=== PATIENT | female | born 1955 | race American Indian/Alaskan Native ===

== ENCOUNTER 2016-11-23 10:00 | Outpatient (CLI) | payer MEDICARE ==
--- NOTE | 2016-11-23 13:11 | Mammography Report ---
LEFT DIGITAL DIAGNOSTIC MAMMOGRAM with CAD: 11/23/16 10:00:00 CLINICAL: Six month followup of an asymmetry. COMPARISON:06/01/16 FINDINGS: Routine views plus spot magnification views were performed.A 1.2 cm oval slightly irregular low density upper outer focal asymmetry is stable compared to the previous exam. A previous ultrasound was negative. IMPRESSION: A stable probably benign focal asymmetry. BI-RADS CATEGORY: 3 - - Probably Benign RECOMMENDATION: Six-month followup. She will be due for routine screening of the right breast in six months. ACR BI-RADS MAMMOGRAPHIC CODES: 0 = Needs additional imaging evaluation; 1 = Negative; 2 = Benign; 3 = Probably benign; 4 = Suspicious; 5 = Malignant; 6 = Known biopsy-proven malignancy COMMENT: 1. Dense breast tissue, i.e., adenosis, fibrocystic changes, etc., may obscure an underlying neoplasm. 2. Approximately 10% of cancers are not detected with mammography. 3. A negative mammography report should not delay biopsy if a clinically suspicious mass is present. COMMENT: Patient follow-up letters are generated by our [employer] application.
== END 2016-11-23 10:01 | disposition home or self-care (01) ==
LOC: SPVWC 10:00
DX: R92.8 Other abnormal and inconclusive findings on diagnostic imaging of breast (principal)
CPT/HCPCS: G0206-LT

== ENCOUNTER 2017-04-16 08:19 | Outpatient (CLI) | payer MEDICARE ==
--- NOTE | 2017-04-17 13:18 | Vascular Lab Report ---
LOWER EXTREMITY VENOUS DUPLEX: REASON FOR EXAM: Edema of the lower extremities. COMMENTS ON THE RIGHT: All veins visualized are freely compressible without evidence of internal echogenicity. Flow is spontaneous and phasic throughout. COMMENTS ON THE LEFT: All veins visualized are freely compressible without evidence of internal echogenicity. Flow is spontaneous and phasic throughout. IMPRESSION: No evidence of acute or chronic deep venous thrombosis in either lower extremity.
== END 2017-04-16 08:20 | disposition home or self-care (01) ==
LOC: VAS 08:19
DX: R60.0 Localized edema (principal)
CPT/HCPCS: 93970

== ENCOUNTER 2017-05-25 12:57 | Outpatient (CLI) | payer MEDICARE ==
--- NOTE | 2017-05-25 13:48 | Mammography Report ---
BILATERAL DIGITAL DIAGNOSTIC MAMMOGRAM with CAD: 05/25/17 12:57:00 CLINICAL: Followup left outer asymmetry. COMPARISON:11/23/16, 06/01/16 and 03/13/16 FINDINGS: The breasts are predominant fatty.The previously described 1 cm ovoid asymmetry in the left breast with an ill-defined margin is stable. No architectural distortion or suspicious calcifications. The right breast is negative. IMPRESSION: Stable probably benign left asymmetry. Negative right breast. BI-RADS CATEGORY: 3 - - Probably Benign RECOMMENDATION: Six month followup left mammogram. ACR BI-RADS MAMMOGRAPHIC CODES: 0 = Needs additional imaging evaluation; 1 = Negative; 2 = Benign; 3 = Probably benign; 4 = Suspicious; 5 = Malignant; 6 = Known biopsy-proven malignancy COMMENT: 1. Dense breast tissue, i.e., adenosis, fibrocystic changes, etc., may obscure an underlying neoplasm. 2. Approximately 10% of cancers are not detected with mammography. 3. A negative mammography report should not delay biopsy if a clinically suspicious mass is present. COMMENT: Patient follow-up letters are generated by our [employer] application.
== END 2017-05-25 12:58 | disposition home or self-care (01) ==
LOC: SPVWC 12:57
DX: N64.89 Other specified disorders of breast (principal); I10 Essential (primary) hypertension; E78.00 Pure hypercholesterolemia, unspecified; J44.9 Chronic obstructive pulmonary disease, unspecified; J18.9 Pneumonia, unspecified organism; F32.9 Major depressive disorder, single episode, unspecified; Z87.891 Personal history of nicotine dependence
CPT/HCPCS: 77066; G0204

== ENCOUNTER 2017-11-20 12:53 | Outpatient (CLI) | payer MEDICARE ==
--- NOTE | 2017-11-20 14:30 | Mammography Report ---
LEFT DIGITAL DIAGNOSTIC MAMMOGRAM with CAD and LEFT BREAST ULTRASOUND: 11/20/17 12:53:00 CLINICAL: Follow-up of a probably benign mammographic asymmetry with no ultrasound correlate. COMPARISON:05/25/17, 12/24/16 and 06/01/16 mammograms. FINDINGS: A stable low density 1.3 cm oval slightly irregular upper-outer focal asymmetry. The breast is mostly fatty and otherwise negative. Ultrasound of the outer left breast was performed and demonstrated normal fatty structures with no mass, cyst or lymph node to correlate with the mammographic density. IMPRESSION: A stable probably benign mammographic asymmetry with no ultrasound correlate. It has been stable since 06/01/16. Recommend a routine screening mammogram 05/25/18. BI-RADS CATEGORY: 3 - - Probably Benign ACR BI-RADS MAMMOGRAPHIC CODES: 0 = Needs additional imaging evaluation; 1 = Negative; 2 = Benign; 3 = Probably benign; 4 = Suspicious; 5 = Malignant; 6 = Known biopsy-proven malignancy COMMENT: 1. Dense breast tissue, i.e., adenosis, fibrocystic changes, etc., may obscure an underlying neoplasm. 2. Approximately 10% of cancers are not detected with mammography. 3. A negative mammography report should not delay biopsy if a clinically suspicious mass is present. COMMENT: Patient follow-up letters are generated by our [employer] application.
== END 2017-11-20 12:54 | disposition home or self-care (01) ==
LOC: SPVWC 12:53
DX: R92.8 Other abnormal and inconclusive findings on diagnostic imaging of breast (principal); I10 Essential (primary) hypertension; J44.9 Chronic obstructive pulmonary disease, unspecified

== ENCOUNTER 2018-05-27 09:45 | Outpatient (CLI) | payer MEDICARE ==
--- NOTE | 2018-05-27 15:24 | Mammography Report ---
BILATERAL DIGITAL SCREENING MAMMOGRAM with CAD: 05/27/18 09:45:00 CLINICAL: Routine screening. COMPARISON:11/20/17 left mammogram and 05/25/17 bilateral mammogram. FINDINGS: The breasts are almost entirely fatty.Stable left outer focal asymmetry. No mass, architectural distortion or suspicious calcifications. IMPRESSION: No mammographic evidence of malignancy. A benign left outer asymmetry which has been stable since 06/01/16. BI-RADS CATEGORY: 2 -- Benign RECOMMENDATION: Routine mammographic screening in one year. COMMENT: Patient follow-up letters are generated by our [employer] application.
== END 2018-05-27 09:46 | disposition home or self-care (01) ==
LOC: SPVWC 09:45
DX: Z12.31 Encounter for screening mammogram for malignant neoplasm of breast (principal); I10 Essential (primary) hypertension; J44.9 Chronic obstructive pulmonary disease, unspecified; K21.9 Gastro-esophageal reflux disease without esophagitis; E66.9 Obesity, unspecified; F32.9 Major depressive disorder, single episode, unspecified; M19.90 Unspecified osteoarthritis, unspecified site; Z90.710 Acquired absence of both cervix and uterus; Z90.722 Acquired absence of ovaries, bilateral
CPT/HCPCS: 77067

== ENCOUNTER 2018-07-11 10:46 | Outpatient (CLI) | payer MEDICARE ==
--- NOTE | 2018-07-11 11:22 | XRay Report ---
ROUTINE CHEST, TWO VIEWS: HISTORY: Cough. The trachea, heart, mediastinal contour, lung skinner and bony thorax are unremarkable. IMPRESSION: Unremarkable chest x-ray.
== END 2018-07-11 10:47 | disposition home or self-care (01) ==
LOC: SPVIMAG 10:46
DX: R05 Cough (principal); I10 Essential (primary) hypertension; J44.9 Chronic obstructive pulmonary disease, unspecified; K21.9 Gastro-esophageal reflux disease without esophagitis; Z90.710 Acquired absence of both cervix and uterus; Z90.722 Acquired absence of ovaries, bilateral
CPT/HCPCS: 71046

== ENCOUNTER 2019-07-23 09:32 | Outpatient (CLI) | payer MEDICARE ==
--- NOTE | 2019-07-24 11:08 | Mammography Report ---
DIGITAL SCREENING MAMMOGRAM WITH CAD, 07/23/2019 INDICATION: Routine screening mammography. TECHNIQUE: Digital bilateral 2D mammography was obtained in the craniocaudal and mediolateral obliq ue projections. This examination was interpreted with the benefit of Computer-Aided Detection analysi s. COMPARISON: 01/12/2016 and 05/27/2018 FINDINGS: Breast Density: There are scattered areas of fibroglandular density. There is no evidence of dominant mass, suspicious calcifications or architectural distortion in eithe r breast. A left outer focal asymmetry is not significantly changed compared to prior exams. IMPRESSION: No mammographic evidence of malignancy. Follow up recommendation: Routine yearly BI-RADS Category 2: Benign. A "normal" or negative report should not discourage follow up or biopsy of a clinically significant f inding. A written summary of these findings will be mailed to the patient. The patient will be entered into a mammography reporting system which will generate a reminder letter for the patient's next appointmen t at the appropriate interval. The [employer] recommends yearly mammograms starting at age 40 and continuing as l rachid as a woman is in good health. Breast MRI is recommended for women with an approximate 20-25% or greater lifetime risk of breast cancer, including women with a strong family history of breast or ova yg cancer or who have been treated for Hodgkin's disease. Signer Name: Jacobo Tomas MD Signed: 07/24/2019 11:04 AM Workstation Name: [id number]
--- NOTE | 2019-07-24 11:24 | Mammography Report ---
BONE DEXA CLINICAL: Postmenopausal. TECHNIQUE: 2 site bone DEXA performed on an Hologic scanner. FINDINGS: The average BMD of the left forearm is 0.480g/cm squared with a T score of -1.6 and a Z score of +0.1 . The average total BMD of the left hip is 1.000 g/cm squared with a T score of -0.2and a Z score of +0 .8. IMPRESSION: 1. WHO classification: Osteopenia with increased fracture risk based on left forearm measurements. 2. WHO classification Normal with average fracture risk based on left hip measurements. RECOMMENDATION: Clinical correlation and routine screening. Definitions: BMD equal bone mineral density T score = BMD related to peak bone mass of young adult ([place]onatan expressed an standard deviation) Z score = age-matched BMD expressed in SD World health organization (WHO) diagnostic criteria Normal T score greater than equal to 1 standard deviation Osteopenia T score between -1 and -2.4 standard deviation Osteoporosis T score -2.5 standard deviation or below. Note: BMD is not the only risk factor for fracture; also consider factors such as the patient's age, risk of falling, previous osteoporotic fracture, family history of osteoporotic fractures, current sm oker and low body weight. Z scores are not calculated if greater than 80 years of age. Signer Name: Jacobo Tomas MD Signed: 07/24/2019 11:19 AM Workstation Name: [id number]
== END 2019-07-23 09:33 | disposition home or self-care (01) ==
LOC: SPVWC 09:32
PROVIDERS: ATTEND Internal Medicine
DX: Z12.31 Encounter for screening mammogram for malignant neoplasm of breast (principal); M85.88 Other specified disorders of bone density and structure, other site; I10 Essential (primary) hypertension; K21.9 Gastro-esophageal reflux disease without esophagitis; Z78.0 Asymptomatic menopausal state; Z90.710 Acquired absence of both cervix and uterus
CPT/HCPCS: 77067; 77080